=== PATIENT | female | born 1980 | race Caucasian/White ===

== ENCOUNTER → 2024-12-05 11:55 | Outpatient (CLI) | payer BC, SELFPAY ==
--- NOTE | 2024-12-05 | DI.MRI.S_ITS ---
PROCEDURE: MR ANKLE RT WO CON INDICATIONS: PAIN TECHNIQUE: Noncontrast sagittal T1 spin echo and T2 fast spin echo with fat saturation, axial proton density fast spin echo and T2 fast spin echo with fat saturation, coronal T1 spin echo and T2 fast spin echo with fat saturation through the ankle/hindfoot. COMPARISON: [facility], CR, XR ANKLE 3 VIEWS WEIGHT BEARING BILATERAL, 09/20/2024, 10:07. [facility], MR, MR ANKLE LT WO CON, 12/05/2024, 12:12. FINDINGS: Image quality: Excellent Tendons: Trace tenosynovitis of the posterior tibialis. The flexor digitorum longus is unremarkable. Mild tenosynovitis of the flexor hallucis longus. The extensor tendons are unremarkable. Longitudinal split tear of the peroneal brevis. Mild tenosynovitis of the peroneal longus. The distal Achilles tendon is unremarkable. Ligaments: The anterior and the posterior tibiofibular ligaments are intact. Marked thickening of the anterior talofibular ligament, with irregularity, representing prior sprain with low-grade tear. Mild sprain of the posterior talofibular ligament. The calcaneal fibular ligament is markedly thickened, representing prior sprain. The deep portion deltoid ligament is unremarkable. Sinus tarsi: No fibrosis Plantar fascia: Unremarkable Muscles: Normal in signal Bones: 5 mm osteochondral defect in the lateral talus dome (07:24), with mild underlying marrow edema. Moderate tibiotalar effusion. Moderate amount of fluid in the posterior subtalar recess. IMPRESSION: 1. Longitudinal split tear of the peroneal brevis. 2. Mild tenosynovitis of the flexor tendons and the peroneal longus. 3. Low-grade tear with sprain of the anterior talofibular ligament. 4. Sprain of the posterior talofibular and the calcaneofibular ligament. 5. 5 mm osteochondral defect in the lateral talus dome with mild marrow edema. Dictated by: Anika Poole M.D. on 12/05/2024 at 15:35 Approved by: Anika Poole M.D. on 12/05/2024 at 15:47
--- NOTE | 2024-12-05 12:01 | DI.MRI.S_ITS ---
PROCEDURE: MR ANKLE LT WO CON INDICATIONS: other instability TECHNIQUE: Noncontrast sagittal T1 spin echo and T2 fast spin echo with fat saturation, axial proton density fast spin echo and T2 fast spin echo with fat saturation, coronal T1 spin echo and T2 fast spin echo with fat saturation through the ankle/hindfoot. COMPARISON: None. FINDINGS: Image quality: Excellent Tendons: Trace tenosynovitis of the posterior tibialis. The flexor digitorum longus is unremarkable. Mild tenosynovitis of the flexor hallucis longus. The extensor tendons unremarkable. Longitudinal split tear of the peroneal brevis, at the level of the lateral malleolus. The peroneal longus is unremarkable. The distal Achilles tendon is unremarkable. Ligaments: The anterior and posterior tibiofibular ligament are intact. The anterior talofibular ligament is mildly redundant, likely representing prior sprain. No high-grade tear of the anterior talofibular ligament. The posterior talofibular ligament is intact. The calcaneofibular ligament is intact. Large heterotopic ossification of the deep portion of the deltoid ligament, likely secondary to high-grade tear. Sinus tarsi: No fibrosis Plantar fascia: Unremarkable Muscles: Normal in signal Bones: Moderate marrow edema of the medial malleolus, favor reactive. Mild degenerative changes 1st tarsometatarsal joint, with mild subchondral marrow edema. Bone island is seen in the 5th metatarsal proximal diaphysis. Small tibiotalar effusion. IMPRESSION: 1. Mild tenosynovitis of the flexor tendons. 2. Longitudinal split tear of the peroneal brevis. 3. High-grade tear of the deep portion of the deltoid ligament with large heterotopic ossification. Reactive marrow edema in the medial malleolus. 4. Mild sprain of the anterior talofibular ligament. 5. Mild degenerative change of the 1st tarsometatarsal joint. Dictated by: Anika Poole M.D. on 12/05/2024 at 15:22 Approved by: Anika Poole M.D. on 12/05/2024 at 15:35
== END ==
PROVIDERS: PCP Family Medicine; Referring Provider Orthopaedic Surgery Foot and Ankle Surgery; Visit Provider Orthopaedic Surgery Foot and Ankle Surgery
DX: S93.491A Sprain of other ligament of right ankle, initial encounter (principal); S93.492A Sprain of other ligament of left ankle, initial encounter; S96.812A Strain of other specified muscles and tendons at ankle and foot level, left foot, initial encounter; S96.811A Strain of other specified muscles and tendons at ankle and foot level, right foot, initial encounter; S93.422A Sprain of deltoid ligament of left ankle, initial encounter; S93.411A Sprain of calcaneofibular ligament of right ankle, initial encounter; M25.371 Other instability, right ankle; M25.372 Other instability, left ankle; M65.972 Unspecified synovitis and tenosynovitis, left ankle and foot; M65.971 Unspecified synovitis and tenosynovitis, right ankle and foot; M21.961 Unspecified acquired deformity of right lower leg
CPT/HCPCS: 73721